=== PATIENT | male | born 2000 | race Caucasian/White ===

== ENCOUNTER 2022-12-15 10:04 | Emergency (ER) | payer SELFPAY ==
--- NOTE | ~2022-12-15 | XR_ITS ---
EXAMINATION: XR hand RT min 3V DATE: 12/15/2022 10:42 INDICATION: Right hand injury and pain. TECHNIQUE: 3 views of right hand were obtained. COMPARISON: None. FINDINGS: Bone alignment is normal. No fracture. Joint spaces are well maintained. IMPRESSION: 1. Normal right hand. Reviewed, dictated and finalized at location A. IMPRESSION: 1. Normal right hand.
[2022-12-15 10:13] VITALS: BP 135/83; PULSE 75; RESP 18; TEMP 36.4; O2SAT 99
--- NOTE | 2022-12-15 10:39 | ED.GENADULT ---
HPI - General Adult General Chief complaint: Extremity Injury, Upper Stated complaint: hand injury Time Seen by Provider: 12/15/22 10:21 Source: patient Mode of arrival: ambulatory Limitations: no limitations History of Present Illness HPI narrative: This is a 22-year-old male who presents to the ED with chief complaint of right hand injury occurring just prior to arrival. Patient states he was working in his backyard and dropped a 40 pound stone onto his right hand. He reports minor lacerations to the dorsum of the hand. Reports pain is in the lateral MCP as well as second MCP area. Reports decreased range of motion due to pain. Denies any further site of pain or injury. Denies numbness or weakness. Related Data Allergies Allergy/AdvReac Type Severity Reaction Status Date / Time No Known Allergies Allergy Verified 12/15/22 10:33 Exam Narrative: GENERAL: Well-appearing, well-nourished, and in no acute distress. HEAD: Normocephalic, atraumatic. EYES: PERRLA and EOMI. ENT: Nares clear, no rhinorrhea or epistaxis. Mucous membranes moist. Oropharynx without tonsillar hypertrophy exudate or other lesions. NECK: Supple. No adenopathy or masses. CHEST: No respiratory distress. Clear to auscultation. No wheezes rales or rhonchi HEART: Regular rate and rhythm. No murmur heard. Normal peripheral pulses. ABDOMEN: Soft, nontender, nondistended, normal active bowel sounds. MSK: RUE: No gross deformity. Significant tenderness to the right fifth metacarpal. Also has tenderness to the second MCP joint area. No tenderness or deformity in the wrist. Range of motion slightly reduced due to pain. Neurovascular intact distally. LUE: MSK exam is otherwise benign. Ambulatory. SKIN: Warm, dry, no rash. NEURO: Alert and oriented x3. No focal deficits. PSYCH: Normal mood and affect. Course Vital Signs Vital signs: Vital Signs Temperature 97.6 F 12/15/22 10:13 Pulse Rate 75 12/15/22 10:13 Respiratory Rate 18 12/15/22 10:13 Blood Pressure 135/83 12/15/22 10:13 Pulse Oximetry 99 12/15/22 10:13 Oxygen Delivery Room Air 12/15/22 10:13 Temperature 97.6 F 12/15/22 10:13 Pulse Rate 75 12/15/22 10:13 Respiratory Rate 18 12/15/22 10:13 Blood Pressure 135/83 12/15/22 10:13 Pulse Oximetry 99 12/15/22 10:13 Oxygen Delivery Room Air 12/15/22 10:13 Procedures Laceration Laceration 1: Date: 12/15/22 Time: 11:02 Site: hand Side (If applicable): right Size (cm): 1 Description: linear Depth: simple, single layer Local Anesthetic: none Pre-repair: wound explored and irrigated extensively ====== Skin Level ====== Skin layer closed with: steri strips ====== Subcutaneous Layer ====== ====== Muscle Layer ====== ====== Tendon Layer ====== Medical Decision Making MDM Narrative Medical decision making narrative: This is a 22-year-old male who presents to the ED with chief complaint of right hand injury just prior to arrival. Vitals are normal. Exam shows decreased range of motion due to pain. No deformity. X-rays do not reveal any acute fractures or dislocations symptoms are consistent with contusions. His laceration to the dorsum of the hand was closed with Steri-Strips here. He will be discharged in stable condition. Return precautions given and supportive measures discussed. Patient is understanding and agreeable with plan for discharge and follow-up with PCP Vital Signs Vital Signs: Vital Signs Temperature 97.6 F 12/15/22 10:13 Pulse Rate 75 12/15/22 10:13 Respiratory Rate 18 12/15/22 10:13 Blood Pressure 135/83 12/15/22 10:13 Pulse Oximetry 99 12/15/22 10:13 Oxygen Delivery Room Air 12/15/22 10:13 Temperature 97.6 F 12/15/22 10:13 Pulse Rate 75 12/15/22 10:13 Respiratory Rate 18 12/15/22 10:13 Blood Pressure 135/83 12/15/22 10:13 Pulse Oximetry 99 07
== END 2022-12-15 11:18 | disposition home or self-care (01) ==
LOC: ANHED 11:10
PROVIDERS: Emergency Provider Physician Assistant
DX: S61.411A Laceration without foreign body of right hand, initial encounter (principal); W20.8XXA Other cause of strike by thrown, projected or falling object, initial encounter
CPT/HCPCS: 73130; 99283

== ENCOUNTER 2024-05-10 13:09 | Emergency (ER) | payer SELFPAY ==
[2024-05-10] VITALS (7 sets, daily range): BP systolic 122–143; BP diastolic 57–83; PULSE 88–125; RESP 16–21; TEMP 36.7–36.8; O2SAT 95–100
--- NOTE | ~2024-05-10 | CT_ITS ---
EXAMINATION: CT abdomen pelvis w con DATE: 05/10/2024 16:56 INDICATION: Abd pain, vomiting, diarrhea, WBC high TECHNIQUE: Computed tomography (CT) of the abdomen and pelvis was performed intravenous contrast. Aut omated exposure control and iterative reconstruction technique were employed. The dose-length product was 215.60 mGy-cm. COMPARISON: None. FINDINGS: Lower thorax: Gynecomastia. Liver: Normal. Biliary/Gallbladder: Gallbladder is normal. No bile duct dilation. Pancreas: No mass or duct dilation. Spleen: Normal. Adrenals:No mass. Kidneys: No suspicious mass, obstructing stone, or hydronephrosis. GI tract: Small bowel wall thickening in the proximal and mid abdomen, with more proximal dilation. G radual transition between dilated and normal caliber bowel. No pneumatosis. Fluid-filled colon as can be seen with diarrheal illness. No large bowel dilation. Normal appendix. Mesentery/Peritoneum: No ascites, mass, or free air. Retroperitoneum: No mass. Pelvis: Pelvic organs are within normal limits. Soft Tissues: Soft tissues and body wall unremarkable. Bones: No acute osseous finding. IMPRESSION: Small bowel enteritis, with proximal small bowel dilation likely reflecting ileus. Early obstruction not excluded. Reviewed, dictated and finalized at location K. [employer] IMPRESSION: Small bowel enteritis, with proximal small bowel dilation likely reflecting ile us. Early obstruction not excluded.
[2024-05-10 14:13] LABS: Basophils Percent Auto 0.2 % (0.2-1.2); Eosinophils Absolute Auto 0.1 K/mm3 (0-0.3); Eosinophils Percent Auto 0.3 % (0-4.4); Hematocrit 45.6 % (42.0-52.0); Hemoglobin 15.7 g/dL (14.0-18.0); Immature Granulocyte Absolute 0.06 K/mm3 (0.00-0.031); Immature Granulocyte Percent A 0.3 % (0-0.5); Lymphocytes Absolute Auto 0.36 K/mm3 (0.9-3.2); Lymphocytes Percent Auto 2.1 % (18.3-44.2); Mean Corpuscular HGB Conc 34.4 g/dl (32-36); Mean Corpuscular Hemoglobin 31.2 pg (26-34); Mean Corpuscular Volume 90.7 fl (80-100); Mean Platelet Volume 9.4 fl (7.4-10.4); Monocytes Absolute Auto 0.8 K/mm3 (0.1-0.6); Monocytes Percent Auto 4.5 % (2.6-8.5); Neutrophils Absolute Auto 15.9 K/mm3 (1.3-6.7); Neutrophils Percent Auto 92.6 % (45.5-73.1); Platelet Count Result 271 k/mm3 (150-375); Red Blood Count 5.03 M/mm3 (4.6-6.20); White Blood Count 17.2 K/mm3 (4.5-10.0)
[2024-05-10 14:49] LABS: Alanine Aminotransferase 69 U/L (6-50); Albumin Level 5.1 g/dL (3.5-5.1); Alkaline Phosphatase 117 U/L (38-126); Anion Gap 8 mmol/L (4-12); Aspartate Amino Transferase 68 U/L (17-59); Bilirubin,Total 0.7 mg/dL (0.2-1.3); Blood Urea Nitrogen 15 mg/dL (9-20); Carbon Dioxide 26 mmol/L (22-30); Chloride 106 mmol/L (98-107); Estimated CRCL calculation 130 ml/min; Estimated Glomerular Filt Rate > 60; Glucose 111 mg/dL (65-110); Lipase 73 U/L (23-300); Potassium 4.3 mmol/L (3.4-5.0); Sodium 140 mmol/L (137-145)
[2024-05-10 16:52] LABS: Add Urine Microscopic? YES; Appearance Urine Clear (Clear); Bacteria Urine None Seen /hpf; Bilirubin Urine Negative (Negative); Blood Urine Negative (Negative); Color Urine Yellow (Yellow); Glucose Urine UA Negative (Negative); Ketones Urine 1+ mg/dL (Negative); Leukocyte Esterase Ur Negative LEU/UL (Negative); Need Manual Microscopic Reviewed; Nitrate Urine Negative (Negative); Non Pathogenic Casts 0-2; Protein Urine 1+ mg/dL (Negative); RBC Urine 0-2 /hpf (0-2); Specific Grav Ur 1.034 (1.001-1.035); Squamous Epithelial Cell Urine None Seen /hpf (Few); Urobilinogen Urine 0.2 mg/dL (<2.0); WBC Urine 0-5 /hpf (0-3)
[2024-05-10] MEDS: LACTATED RINGERS 1,000 ML 999 ML IV CONT (17:02)
[2024-05-10] MEDS: ONDANSETRON INJ 4 MG/2 ML VIAL IV PUSH (17:03)
[2024-05-10] MEDS: MORPHINE SULFATE (*CRX) 4 MG/ML INJ IV PUSH (17:04)
[2024-05-10] MEDS: FAMOTIDINE 20 MG/2 ML VIAL IV PUSH (17:06)
--- NOTE | 2024-05-10 18:06 | ED_ITS ---
HPI - Nausea/Vomiting/Diarrhea General Chief complaint: Nausea/Vomiting/Diarrhea Stated complaint: n/v/d since 0600 Time Seen by Provider: 05/10/24 15:38 History of Present Illness HPI Narrative: 23-year-old otherwise healthy male presenting to the emergency room with nonspecific nausea, vomiting, diarrhea after eating at [employer] yesterday. He had a meal that was share with other family members and went home feeling normal. He woke up this morning feeling vague abdominal cramping and diarrhea. He has been on the toilet having diarrhea and vomiting since this morning. Thinks he might have caught ?E coli. Patient denies any fever, chills, rigors. No chest pain, shortness a breath. Was otherwise normal state of health. No history of abdominal surgeries. No one else with any similar symptoms in the family. Related Data Allergies Allergy/AdvReac Type Severity Reaction Status Date / Time No Known Allergies Allergy Verified 12/15/22 10:33 Review of Systems Review of Systems: As reviewed above in HPI Exam Narrative: GENERAL: [Well-appearing, well-nourished, and in no acute distress.] HEAD: [Normocephalic, atraumatic.] EYES: [PERRLA and EOMI.] ENT: Nares clear, no rhinorrhea or epistaxis. Mucous membranes moist. NECK: Supple. CHEST: [Clear to auscultation. No respiratory distress.] HEART: [Regular rate and rhythm]. No murmur heard. [Normal peripheral pulses.] ABDOMEN: [Soft, nondistended], [nontender], [No rigidity or guarding] EXTREMITIES: Normal range of motion. [No edema.] SKIN: Warm, dry, no rash. NEURO: [No focal deficits]. Alert and oriented [x3.] PSYCH: [Normal mood and affect.] Course Vital Signs Vital signs: Vital Signs Temperature 36.7 C 05/10/24 13:12 Pulse Rate 111 H 05/10/24 13:12 Respiratory Rate 16 05/10/24 13:12 Blood Pressure 143/83 H 05/10/24 13:12 Pulse Oximetry 95 05/10/24 13:12 Temperature 36.7 C 05/10/24 13:12 Pulse Rate 125 H 05/10/24 16:18 Respiratory Rate 21 H 05/10/24 14:22 Blood Pressure 122/65 05/10/24 16:18 Pulse Oximetry 100 05/10/24 14:22 MDM - Nausea/Vomiting/Diarrhea MDM Narrative Medical decision making narrative: 23-year-old male presenting with nonspecific nausea, vomiting, diarrhea since eating at [employer] yesterday. He thinks he caught a stomach bug or E coli. Otherwise appears well not any acute distress and not dehydrated. Abdomen is soft nondistended, nontender, no signs of peritonitis or rebound or guarding. He overall appears well bili slightly tachycardic with a pulse of 111. He is afebrile with normal otherwise vital signs. Laboratory studies were obtained including CBC, CMP, lipase urinalysis. He was treated symptomatic with Pepcid, Zofran, fluid bolus, morphine and re-evaluated. Upon re-evaluation patient had significant improvement in his pain but his laboratory studies do reveal a good leukocytosis 17.2 which could be a combination of an active infectious process or the retching and vomiting he has been experiencing throughout the day. Electrolytes look within normal limits, renal function panel within normal limits. ALT and AST only mildly above the upper limit of normal but no alk-phos elevations or bilirubin concerns. Negative lipase. Urine without active infection. Given the elevated leukocytosis and concern for potential intra-abdominal process that could include appendicitis we did order a CT abdomen and pelvis with IV contrast. CT scan was independent reviewed by myself and also inter preted by radiology. Patient has small bowel enteritis consistent with gastroenteritis. Some nonspecific small-bowel dilations. No concern presently for obstruction based on clinical exam and his diarrhea or consistent with gastroenteritis. We started the patient on ciprofloxacin Flagyl and will send the patient home with a short course of Bactrim in addition to as-needed Zofran and Bentyl. He without a follow-up with his primary care provider outpatient and was given strict return precautions including any worsening pain, intractable nausea, vomiting difficulty tolerating p.o. intake. Patient verbalized understanding these instructions and safe discharge at this time. Differential Diagnosis Differential diagnosis: Likely traveler's diarrhea, food poisoning, gastroenteritis, clostridium difficile infection, drug-induced nausea and vomiting and dehydration Medical Records Attestation: I reviewed the patient's medical records. Lab Data Attestation: I reviewed the patient's lab results. 05/10/24 14:08 11/26/24 14:08 Labs: Lab Results 05/10/24 05/10/24 Range/Units 14:08 16:33 WBC 17.2 H (4.5-10.0) K/mm3 RBC 5.03 (4.6-6.20) M/mm3 Hgb 15.7 (14.0-18.0) g/dL Hct 45.6 (42.0-52.0) % MCV 90.7 (80-100) fl MCH 31.2 (26-34) pg MCHC 34.4 (32-36) g/dl RDW 13.0 (11.5-14.5) % Plt Count 271 (150-375) k/mm3 MPV 9.4 (7.4-10.4) fl Immature Gran % (Auto) 0.3 (0-0.5) % Neut % (Auto) 92.6 H (45.5-73.1) % Lymph % (Auto) 2.1 L (18.3-44.2) % [place] % (Auto) 4.5 (2.6-8.5) % Eos % (Auto) 0.3 (0-4.4) % Baso % (Auto) 0.2 (0.2-1.2) % Lymph # (Auto) 0.36 L (0.9-3.2) K/mm3 [place] # (Auto) 0.8 H (0.1-0.6) K/mm3 Eos # (Auto) 0.1 (0-0.3) K/mm3 Baso # (Auto) 0.0 (0.0-0.1) K/mm3 Abs Immat Gran (auto) 0.06 H (0.00-0.031) K/mm3 Absolute Neuts (auto) 15.9 H (1.3-6.7) K/mm3 Absolute Nucleated RBC 0.000 (0.0-0.012) K/mm3 Nucleated RBC % 0.0 (0.0-0.2) % Sodium 140 (137-145) mmol/L Potassium 4.3 (3.4-5.0) mmol/L Chloride 106 (98-107) mmol/L Carbon Dioxide 26 (22-30) mmol/L Anion Gap 8 (4-12) mmol/L BUN 15 (9-20) mg/dL Creatinine 0.80 (0.7-1.3) mg/dL Estim Creat Clear Calc 130 ml/min Estimated GFR > 60 (59 - ) Glucose 111 H (65-110) mg/dL Calcium 10.0 (8.4-10.2) mg/dL Total Bilirubin 0.7 (0.2-1.3) mg/dL AST 68 H (17-59) U/L ALT 69 H (6-50) U/L Alkaline Phosphatase 117 (38-126) U/L Total Protein 9.0 H (6.3-8.2) g/dL Albumin 5.1 (3.5-5.1) g/dL Lipase 73 (23-300) U/L Urine Color Yellow (Yellow) Urine Appearance Clear (Clear) Urine pH 5.0 (5.0-9.0) Ur Specific [place] 1.034 (1.001-1.035) Urine Protein 1+ H (Negative) mg/dL Urine Glucose (UA) Negative (Negative) mg/dL Urine Ketones 1+ H (Negative) mg/dL Ur Blood (Man) Negative (Negative) Urine Nitrate Negative (Negative) Urine Bilirubin Negative (Negative) Urine Urobilinogen 0.2 (<2.0) mg/dL Add Ur Microanalysis Reviewed Leukocyte Esterase Rfl Negative (Negative) LAUREN/UL Urine RBC 0-2 (0-2) /hpf Urine WBC 0-5 (0-3) /hpf Ur Squamous Epith Cells None seen (Few) /hpf Urine Bacteria None seen /hpf Urine Casts 0-2 Imaging Data Attestation: I personally reviewed and interpreted this imaging study as follows: My impression: Impressions Abdomen/Pelvis CT 05/10/24 16:58 IMPRESSION: Small bowel enteritis, with proximal small bowel dilation likely reflecting ileus. Early obstruction not excluded. Discharge Plan Discharge Clinical Impression: Gastroenteritis, Food poisoning Patient Disposition: Home, Self-Care Condition: Stable Instructions: Antibiotic Form, Gastroenteritis (ED), Acute Nausea and Vomiting (ED), Acute Diarrhea (ED) Additional Instructions: We will send you home with some symptomatic relieving medications as well as a short course of antibiotics. Please follow-up with your primary care provider or return to the ER with any new or worsening concerns at any time. Prescriptions: New amoxicillin-pot clavulanate 875-125 mg tablet 1 tablet PO Q12H 7 Days Qty: 14 0RF dicyclomine 20 mg tablet 20 mg PO TID PRN (Reason: abdominal pain) Qty: 14 0RF ondansetron 4 mg tablet,disintegrating 4 mg PO Q8H PRN (Reason: nausea and vomiting) Qty: 10 0RF Follow-up/Referrals: UNKNOWN,DOCTOR [Primary Care Provider] - Time of Disposition: 18:17
[2024-05-10] MEDS: CIPROFLOXACIN 400 MG/D5W 200ML 200 ML 200 MG IVPB (18:16)
[2024-05-10] MEDS: metroNIDAZOLE 500 MG/ISO 100ML 500 MG/100 ML BAG 100 MG IVPB (19:22)
== END 2024-05-10 20:45 | disposition home or self-care (01) ==
PROVIDERS: Emergency Provider Student in an Organized Health Care Education/Training Program
DX: A05.9 Bacterial foodborne intoxication, unspecified (principal)
CPT/HCPCS: 36415; 74177; 80053; 81001; 83690; 85025; 96365; 96367; 96375; 99284; J0744; J1836; J2270; J2405; J7120; Q9967

== ENCOUNTER 2025-05-25 15:49 | Emergency (ER) | payer OTHER, SELFPAY ==
[2025-05-25 15:56] VITALS: BP 125/73; PULSE 88; RESP 18; TEMP 36.6; O2SAT 100
--- NOTE | 2025-05-25 17:32 | PC.NURSE ---
pt was called at 1718 and 1732 from triage to go into a room with no answer
--- OUTSIDE RECORDS SUMMARY | 2025-05-25 19:08 | XMS_ITS | Clinical Summary ---
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 Gender Identity Not on file Sexual Orientation Not on file Last Filed Vital Signs Vital Sign Reading Time Taken Comments Blood Pressure 118/78 06/07/2022 8:09 PM [employer] Pulse 70 06/07/2022 8:09 PM [employer] Temperature 36.6 C (97.9 F) 06/07/2022 6:03 PM [employer] Respiratory Rate 18 06/07/2022 8:09 PM [employer] Oxygen Saturation 98% 06/07/2022 8:09 PM [employer] Inhaled Oxygen Concentration - - Weight 75.9 kg (167 lb 5.3 oz) 06/07/2022 6:03 P M [employer] Height 182.9 cm (6') 06/07/2022 6:03 PM [employer] Body Mass Index 22.69 06/07/2022 6:03 PM [employer] Plan of Treatment Health Maintenance Due Date Last Done Comments Depression Screening 2001 Hepatitis C Screening 2001 Varicella Vaccines (1 of 2 - 13+ 2-dose series) 2014 HPV Vaccines (1 - Male 3-dos e series) 2016 Meningococcal B Vaccine (1 o f 2 - Standard) 2017 DTaP/Tdap/Td Vaccine (1 - Tdap) 11/13/2018 9 Hepatitis B Screening 2019 Regular Well Visit/Exam 18-64 2019 Influenza Vaccine (#1) 2025 Pneumococcal vaccine <65 Aged Out No longer eligible based on patient's age to complete this topic Care Teams Associate Counsel Relationship Specialty Start Date End Date Norberto Wilson DO PCP - General Family Medicine 09/15/22
--- OUTSIDE RECORDS SUMMARY | 2025-05-25 19:34 | XMS_ITS | Clinical Summary ---
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 Gender Identity Not on file Sexual Orientation Not on file Last Filed Vital Signs Vital Sign Reading Time Taken Comments Blood Pressure 118/78 06/07/2022 8:09 PM ESOL INSTRUCTOR Pulse 70 06/07/2022 8:09 PM ESOL INSTRUCTOR Temperature 36.6 C (97.9 F) 06/07/2022 6:03 PM ESOL INSTRUCTOR Respiratory Rate 18 06/07/2022 8:09 PM ESOL INSTRUCTOR Oxygen Saturation 98% 06/07/2022 8:09 PM ESOL INSTRUCTOR Inhaled Oxygen Concentration - - Weight 75.9 kg (167 lb 5.3 oz) 06/07/2022 6:03 P M ESOL INSTRUCTOR Height 182.9 cm (6') 06/07/2022 6:03 PM ESOL INSTRUCTOR Body Mass Index 22.69 06/07/2022 6:03 PM ESOL INSTRUCTOR Plan of Treatment Health Maintenance Due Date [...] age to complete this topic Care Teams Park Guard Relationship Specialty Start Date End Date Norberto Wilson DO PCP - General Family Medicine 09/15/22
== END 2025-05-25 18:18 | disposition left against medical advice (07) ==
DX: H53.8 Other visual disturbances (principal)
CPT/HCPCS: 99199

== ENCOUNTER 2025-05-25 18:48 | Emergency (ER) | payer SELFPAY ==
--- NOTE | 2025-05-25 18:53 | ED_ITS ---
HPI - Eye Problem General Chief complaint: Eye Problems Stated complaint: Left Eye Irritation Time Seen by Provider: 05/25/25 18:50 Source: patient Mode of arrival: ambulatory Limitations: no limitations History of Present Illness HPI Narrative: patient is a 24-year-old male that presents with left eye irritation. States it was matted shut this morning. Thinks there may be something in eye and did flush eye with no relief. Eye lids feel swollen and red at the corner of eye. Related Data Allergies Allergy/AdvReac Type Severity Reaction Status Date / Time No Known Allergies Allergy Verified 05/25/25 19:13 Review of Systems 2 Review of Systems: All systems reviewed & are unremarkable except as noted in HPI and below Constitutional: Constitutional: Denies body ache(s), Denies fever(s), Denies headache(s), Denies malaise and Denies weakness Eyes: Eyes: Reports blurry vision, Denies eye discharge, Reports irritation, Reports itchy eyes, Denies loss of vision and Reports eye pain ENT: Denies otalgia, Denies headache(s), Denies nasal discharge, Denies sinus pain and Denies sore throat Cardiovascular: Cardiovascular: Denies chest pain, Denies irregular heart rhythm and Denies dyspnea Respiratory: Respiratory: Denies dyspnea Gastrointestinal: Gastrointestinal: Denies abdominal pain, Denies diarrhea, Denies nausea and Denies vomiting Musculoskeletal: Musculoskeletal: Denies back pain, Denies myalgias and Denies arthralgias Integumentary/Breasts: Skin/Breast: Denies pruritus and Denies rash Neurologic: Denies headache(s), Denies loss of vision and Denies weakness Psychiatric: Psychiatric: Reports no additional psychiatric complaints Allergic/Immunologic: Allergic/Immunologic: Reports itchy eyes PMFSH Comments At time of signature, agree with nursing past medical, surgical, social and family history. There is no relevant family history pertinent to the presenting complaint. Exam 2 Const: General: cooperative, healthy appearing, comfortable, no acute distress and well nourished Nutritional Appearance: well nourished O rientation/consciousness: patient oriented x3 Limitations: no limitations HENMT: Head: normal to inspection, normocephalic and atraumatic Ears: e xternal ears normal Face/Nose/Sinus: Normal external nose present, normal facial exam and face symmetric Face and sinus: normal facial exam and face symmetric Mouth: Yes lip normal Eyes: General: appearance normal, both eyes and all related structures V isual Ortez: normal visual ortez by confrontation Alignment and Position: a lignment normal and position normal Periorbital: periorbital findings normal Eyelids: eyelid abnormality left upper eyelid swelling (mild) Conjunctivae: conjunctivae normal Sclera: sclerae normal Cornea: corneas normal and fluorescein used Pupils: Equal, round and reactive pupils present EOM: E OMs intact bilaterally Direct Ophthalmoscopy: no photophobia Other: No hyphema, no foreign body under the lids. Eyes/upper lids images: 1. erythema and tenderness Neck: Neck: normal visual inspection, full ROM, no lymphadenopathy and no meningeal signs Chest: Chest palpation & inspection: normal inspection of the chest Resp: Effort & Inspection: normal respiratory effort and able to speak in complete sentences Auscultation: clear to auscultation bilaterally Cardio: Rate: regular rate Rhythm: regular rhythm Heart sounds: S1 normal heart sound present and S2 normal heart sound present GI: Inspection: normal to inspection Skin: General skin exam: normal color and no rashes or lesions noted Neuro: General: patient oriented x3, moves all extremities and no meningeal signs Cranial nerves: Yes Equal, round and reactive pupils present Speech: normal speech Gait exam (Neuro): Normal gait present Extrem: General: normal to inspection, full ROM and no edema Psych: Appearance: grossly normal and well kempt Mental Status: mental status grossly normal Speech and movement: Normal speech and movement present Affect: normal affect Attitude: cooperative Thought process: Normal thought process present Course Course Emergency Course: Patient is aware of diagnosis, understands and agrees to treatment plan. Anticipatory guidance given. Patient agrees to follow-up as directed and is aware of reasons to seek care at the emergency department. Portions of this record may have been created with voice recognition software Level of Care: Express Care Visit MDM MDM Narrative Medical decision making narrative: Will treat with antibiotic ointment and have patient follow-up with ophthalmology Pt well hydrated appearing, in no respiratory distress, hemodynamically stable. Recommend supportive care. The patient is stable at time of discharge the clinical impression was discussed and the patient was given the opportunity to ask questions, which were addressed as completely as possible given the information available at present. Anticipatory guidance and return to care precautions were discussed and the importance of primary care follow-up was stressed and encouraged. The patient voiced understanding of the plan, indications to return, and the need for follow-up. Exam findings show no acute concerns or changes Patient is appropriate for outpatient treatment and follow-up. Differential Diagnosis Differential Diagnosis: conjunctivitis, blepharitis, stye, chalazion, less likely orbital cellulitis, foreign body in eye, corneal abrasion Medical Records I have reviewed the following patient records and this information was taken into consideration when formulating the assessment and plan.: previous clinic visits Discharge Plan Discharge Clinical Impression: Eye infection Qualifiers: Laterality: left Qualified Code(s): H44.002 - Unspecified purulent endophthalmitis, left eye Patient Disposition: Home Condition: Stable Instructions: Warm Compress or Soak (ED) Additional Instructions: Eye drops as prescribed. -Do this for 3 to 4 days until all redness and discharge has disappeared. -Cold compresses to the affected eye for comfort -May need warm compresses to remove debris in the morning -When cleaning the eyes used a washcloth/cotton ball in one direction then change washcloths/cotton ball before using it on another eye. -Do not share medicine--do not touch the eye with the medicine -Alternate or take Tylenol or ibuprofen as directed in the bottle for pain -Avoid screen time--television, computer, tablet or phone. -Practice good handwashing and hygiene to prevent spread of infection Follow-up with PCP or swatch maker if condition is not improving in 2-3days. Go to the emergency room if you have pain behind your eye, pressure behind her eye, difficulty seeing, or other severe symptoms Patient Language: [place] Prescriptions: New erythromycin 5 mg/gram (0.5 %) ointment 0.5 inch LEFT EYE QID 5 Days Qty: 3.5 0RF Follow-up/Referrals: Brett Alvarez MD [Physician, Family Practice] - 3 Days Time of Disposition: 19:36
[2025-05-25 19:00] VITALS: BP 125/79; PULSE 76; RESP 18; TEMP 36.6; O2SAT 100
[2025-05-25] MEDS: DACRIOSE EYE IRRIGATION 118 ML BOTTLE LEFT EYE (19:28)
[2025-05-25] MEDS: TETRACAINE HCL 0.5% OPHTH SOLN 4 ML BTL LEFT EYE (19:28)
[2025-05-25] MEDS: FLUORESCEIN SOD 1 MG/STRIP LEFT EYE (19:28)
== END 2025-05-25 19:42 | disposition home or self-care (01) ==
PROVIDERS: Emergency Provider Nurse Practitioner Family
DX: H44.002 Unspecified purulent endophthalmitis, left eye (principal)
CPT/HCPCS: 99213; A9270; G0463